=== PATIENT | male | born 1950 | race Caucasian/White ===

== ENCOUNTER → 2016-07-31 | Outpatient (CLI) | payer MEDICARE ==
[~2016-07-31] VITALS: Ht 175.3 cm; Wt 80.3 kg
[~2016-07-31] MED LIST: AMLO2.5T PO; ASPI1TAB PO; ATEN100T PO; ATOR1TAB19 PO; CHLO125TA PO; CLOP75TA2 PO; COLA100C PO; FERR325T PO; FERR325T3 PO; FISH1000 PO; LIDOCAINE 2% INJ 100 MG/5 ML SDV (FOR ANES.) As Ordered ONE; LOSA100T36 PO; METF-415 PO; NS 1,000 ML IV SCH; PANT40TA2 PO; POTA10CA PO; PRIL40CA PO; PROPOFOL 200 MG/20 ML VIAL As Ordered ONE; SUCR1TA PO; VITMTA PO; ePHEDrine SULFATE 25 MG/5 ML(5MG/ML) SYRINGE As Ordered ONE; fentaNYL 100 MCG/2 ML INJECTION (J3010) As Ordered ONE
--- NOTE | 2016-07-31 10:24 | ROOR ---
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 Procedure: Pre-Anesthesia Assessment: - The heart rate, respiratory rate, oxygen saturations, blood pressure, adequacy of pulmonary ventilation, and response to care were monitored throughout the procedure. The Endoscope was introduced through the mouth, and advanced to the second part of duodenum. The upper GI endoscopy was accomplished without difficulty. The patient tolerated the procedure well. Findings: Three large pedunculated and sessile polyps with stigmata of recent bleeding were found at the pylorus. An endoloop was maneuvered over the polyp stalk and closed at the mucosal attachment prior to removal in order to prevent bleeding. Polyp resection was incomplete, and the resected tissue was partially retrieved. The exam was otherwise without abnormality. 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 The polypoid lesions "ballvalve" through the pylorus making access difficult. Endoloops were placed before piecemeal polypectomy was done with hot snare. The polyp resection was incomplete, and the resected tissue was partially retrieved. - The examination was otherwise normal. Recommendation: - Repeat the upper endoscopy in 1 month for retreatment. - Continue present medications. - My office will call you to reschedule the procedure. Carmelo Eng MD Carmelo ENG MD 07/31/2016 10:23:43 AM This report has been signed electronically. Number of Addenda: 0 Note Initiated On: 07/31/2016 9:24 AM Estimated Blood Loss: Estimated blood loss: none.
[2016-07-31 10:33] VITALS: BP 129/76
== END | disposition home or self-care (01) ==
LOC: M OPP 08:19
PROVIDERS: ATTEND Internal Medicine Gastroenterology
DX: K31.7 Polyp of stomach and duodenum (principal); D62 Acute posthemorrhagic anemia; I10 Essential (primary) hypertension; E78.5 Hyperlipidemia, unspecified; E11.9 Type 2 diabetes mellitus without complications; R60.9 Edema, unspecified; R12 Heartburn; R06.83 Snoring; Z79.84 Long term (current) use of oral hypoglycemic drugs; Z87.19 Personal history of other diseases of the digestive system; Z80.0 Family history of malignant neoplasm of digestive organs; Z87.891 Personal history of nicotine dependence; Z79.899 Other long term (current) drug therapy
CPT/HCPCS: 43251; 88305; J3010

== ENCOUNTER → 2016-09-03 | Outpatient (CLI) | payer MEDICARE ==
[~2016-09-03] MED LIST changes: +AMLO-59 PO; -LIDOCAINE 2% INJ 100 MG/5 ML SDV (FOR ANES.) As Ordered ONE; +LOSA100T37 PO; -NS 1,000 ML IV SCH; -PROPOFOL 200 MG/20 ML VIAL As Ordered ONE; +SENN8.6T8 PO; -ePHEDrine SULFATE 25 MG/5 ML(5MG/ML) SYRINGE As Ordered ONE; -fentaNYL 100 MCG/2 ML INJECTION (J3010) As Ordered ONE
[2016-09-03 13:53] LABS: MEAN CORPUSCULAR HEMOGLOBIN 30.9 pg (27.0-33.0); MEAN CORPUSCULAR HGB CONC 34.4 g/dl (32.0-36.5); MEAN CORPUSCULAR VOLUME 89.8 fl (80.0-96.0); RED CELL DISTRIBUTION WIDTH 17.9 % (11.5-14.5); WHITE BLOOD COUNT 6.8 K/mm3 (4.0-10.0)
== END ==
LOC: M LAB 12:49
PROVIDERS: ATTEND Family Medicine
DX: D64.9 Anemia, unspecified (principal); D69.6 Thrombocytopenia, unspecified

== ENCOUNTER → 2016-09-07 | Outpatient (CLI) | payer MEDICARE ==
[~2016-09-07] VITALS: Ht 175.3 cm; Wt 77.1 kg
[~2016-09-07] MED LIST changes: +LIDOCAINE 2% INJ 100 MG/5 ML SDV (FOR ANES.) As Ordered ONE; +NS 1,000 ML IV SCH; +PROPOFOL 200 MG/20 ML VIAL As Ordered ONE; +fentaNYL 100 MCG/2 ML INJECTION (J3010) As Ordered ONE
--- NOTE | 2016-09-07 09:22 | ROOR ---
Patient Name: Kg Lawrence Procedure Date: 09/07/2016 8:43 AM Date of : 1950 Age: 66 Room: [facility] Gender: Male Note Status: Finalized Procedure: Upper GI endoscopy Indications: Therapeutic procedure, Iron deficiency anemia, Heme positive stool, large benign antral gastric polypoid lesions. follow up partial resection 1 month ago Providers: Carmelo ENG MD Referring MD: Huma Matthews MD Requesting Provider: Medicines: Monitored Anesthesia Care Complications: No immediate complications. Procedure: Pre-Anesthesia Assessment: - The heart rate, respiratory rate, oxygen saturations, blood pressure, adequacy of pulmonary ventilation, and response to care were monitored throughout the procedure. The Endoscope was introduced through the mouth, and advanced to the second part of duodenum. The upper GI endoscopy was accomplished without difficulty. The patient tolerated the procedure well. Findings: A medium-sized, polypoid, partially circumferential (involving one-half of the lumen circumference) mass with no bleeding and no stigmata of recent bleeding was found in the prepyloric region of the stomach and at the pylorus. Biopsies were taken with a cold forceps for histology. Coagulation for tissue destruction using argon beam at 0.8 liters/minute and 35 perez was unsuccessful. The exam was otherwise without abnormality. 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 (there is significant residual polypoid tissue that is not safely removable endoscopically). Biopsied and treated with argon beam coagulation. Treatment not successful as I am not able to access this mass safely across pyloric channel. - The examination was otherwise normal. Recommendation: - Observe patient's clinical course. - Refer to a surgeon at appointment to be scheduled. Carmelo Eng MD Carmelo ENG MD 09/07/2016 9:21:23 AM This report has been signed electronically. Number of Addenda: 0 Note Initiated On: 09/07/2016 8:43 AM Estimated Blood Loss: Estimated blood loss: none.
[2016-09-07 09:35] VITALS: BP 139/79
== END | disposition home or self-care (01) ==
LOC: M OPP 07:21
PROVIDERS: ATTEND Internal Medicine Gastroenterology
DX: D50.9 Iron deficiency anemia, unspecified (principal); D13.1 Benign neoplasm of stomach; R19.5 Other fecal abnormalities; I10 Essential (primary) hypertension; E78.00 Pure hypercholesterolemia, unspecified; D69.6 Thrombocytopenia, unspecified; Z79.899 Other long term (current) drug therapy; Z87.891 Personal history of nicotine dependence
CPT/HCPCS: 43239; 43270; 88305; 99156; 99157; J3010

== ENCOUNTER → 2016-09-14 | Outpatient (CLI) | payer MEDICARE ==
[~2016-09-14] MED LIST changes: -LIDOCAINE 2% INJ 100 MG/5 ML SDV (FOR ANES.) As Ordered ONE; -NS 1,000 ML IV SCH; -PROPOFOL 200 MG/20 ML VIAL As Ordered ONE; -fentaNYL 100 MCG/2 ML INJECTION (J3010) As Ordered ONE
[2016-09-14 09:20] LABS: BASO % 0.6 % (0.0-1.0); EOS # 0.1 K/mm3 (0.0-0.50); LYMPH % 17.6 % (24.0-44.0); MEAN CORPUSCULAR HEMOGLOBIN 31.1 pg (27.0-33.0); MEAN CORPUSCULAR HGB CONC 33.9 g/dl (32.0-36.5); MEAN CORPUSCULAR VOLUME 91.7 fl (80.0-96.0); MONO # 0.2 K/mm3 (0.0-0.8); MONO % 4.3 % (0.0-5.0); NEUTROPHILS # 4.2 K/mm3 (1.8-7.7); NEUTROPHILS % 74.7 % (36.0-66.0); RED CELL DISTRIBUTION WIDTH 16.1 % (11.5-14.5); WHITE BLOOD COUNT 5.6 K/mm3 (4.0-10.0)
[2016-09-14 09:51] LABS: ALBUMIN 3.2 GM/DL (3.2-5.2); ALBUMIN/GLOBULIN RATIO 1.33 (1.00-1.93); ALKALINE PHOSPHATASE 67 U/L (45-117); ALT/SGPT 23 U/L (12-78); ANION GAP 11 MEQ/L (8-16); AST/SGOT 17 U/L (15-37); BILIRUBIN,TOTAL 0.4 MG/DL (0.2-1.0); BLOOD UREA NITROGEN 13 MG/DL (7-18); CALCIUM LEVEL 8.4 MG/DL (8.8-10.2); CARBON DIOXIDE LEVEL 27 MEQ/L (21-32); CHLORIDE LEVEL 105 MEQ/L (98-107); CHOLESTEROL LEVEL 148 MG/DL (<200); CREATININE FOR GFR 1.23 MG/DL (0.70-1.30); GLOMERULAR FILTRATION RATE > 60.0 (>49); GLUCOSE, FASTING 177 MG/DL (80-110); POTASSIUM SERUM 3.8 MEQ/L (3.5-5.1); SODIUM LEVEL 143 MEQ/L (136-145); TOTAL PROTEIN 5.6 GM/DL (6.4-8.2); TRIGLYCERIDES LEVEL 81 MG/DL (<150)
== END ==
LOC: M LAB 08:27
PROVIDERS: ATTEND Family Medicine
DX: I10 Essential (primary) hypertension (principal); E11.42 Type 2 diabetes mellitus with diabetic polyneuropathy; E78.2 Mixed hyperlipidemia

== ENCOUNTER → 2016-12-24 | Outpatient (CLI) | payer MEDICARE ==
[~2016-12-24] MED LIST changes: -COLA100C PO; +COLA100C3 PO
[2016-12-24 09:16] LABS: MEAN CORPUSCULAR HGB CONC 35.1 g/dl (32.0-36.5); MEAN CORPUSCULAR VOLUME 93.8 fl (80.0-96.0); RED CELL DISTRIBUTION WIDTH 12.7 % (11.5-14.5); WHITE BLOOD COUNT 6.2 K/mm3 (4.0-10.0)
[2016-12-24 09:40] LABS: PERCENT SATURATION 28.8 % (19.7-37.4)
== END ==
LOC: M LAB 08:41
PROVIDERS: ATTEND Physician Assistant Medical
DX: D64.9 Anemia, unspecified (principal)

== ENCOUNTER → 2017-02-18 | Outpatient (CLI) | payer MEDICARE ==
[~2017-02-18] MED LIST changes: +AMLO-140 PO; -AMLO-59 PO; -COLA100C3 PO; +COLA100C5 PO; +FERR1TAB8 PO; -FERR325T PO; -LOSA100T37 PO; +LOSA100T5 PO
[2017-02-18 10:18] LABS: BASO % 0.2 % (0.0-1.0); EOS % 0.4 % (0.0-3.0); LYMPH # 0.6 K/mm3 (1.5-4.5); LYMPH % 8.1 % (24.0-44.0); MEAN CORPUSCULAR HEMOGLOBIN 33.2 pg (27.0-33.0); MEAN CORPUSCULAR HGB CONC 35.6 g/dl (32.0-36.5); MEAN CORPUSCULAR VOLUME 93.4 fl (80.0-96.0); MONO # 0.3 K/mm3 (0.0-0.8); MONO % 3.5 % (0.0-5.0); NEUTROPHILS # 6.9 K/mm3 (1.8-7.7); NEUTROPHILS % 86.9 % (36.0-66.0); RED CELL DISTRIBUTION WIDTH 13.2 % (11.5-14.5); WHITE BLOOD COUNT 7.9 K/mm3 (4.0-10.0)
[2017-02-18 10:27] LABS: ALBUMIN 3.4 GM/DL (3.2-5.2); ALBUMIN/GLOBULIN RATIO 1.31 (1.00-1.93); ALKALINE PHOSPHATASE 50 U/L (45-117); ALT/SGPT 26 U/L (12-78); ANION GAP 10 MEQ/L (8-16); AST/SGOT 13 U/L (15-37); BILIRUBIN,TOTAL 0.7 MG/DL (0.2-1.0); BLOOD UREA NITROGEN 30 MG/DL (7-18); CALCIUM LEVEL 8.7 MG/DL (8.8-10.2); CARBON DIOXIDE LEVEL 25 MEQ/L (21-32); CHLORIDE LEVEL 103 MEQ/L (98-107); CHOLESTEROL LEVEL 151 MG/DL (<200); CREATININE FOR GFR 1.25 MG/DL (0.70-1.30); GLOMERULAR FILTRATION RATE > 60.0 (>49); GLUCOSE, FASTING 173 MG/DL (80-110); POTASSIUM SERUM 4.7 MEQ/L (3.5-5.1); SODIUM LEVEL 138 MEQ/L (136-145); TRIGLYCERIDES LEVEL 65 MG/DL (<150)
== END ==
LOC: M LAB 08:47
PROVIDERS: ATTEND Family Medicine
DX: E78.2 Mixed hyperlipidemia (principal); I10 Essential (primary) hypertension; E11.42 Type 2 diabetes mellitus with diabetic polyneuropathy; D50.0 Iron deficiency anemia secondary to blood loss (chronic)

== ENCOUNTER 2018-10-09 | Emergency (ER) | payer MEDICARE ==
[~2018-10-09] VITALS: Ht 177.8 cm; Wt 72.7 kg
[~2018-10-09] MED LIST changes: -AMLO2.5T PO; +AMLO2.5T3 PO; -ASPI1TAB PO; +ASPI81TA26 PO; +KLOR10TA76 PO; -LOSA100T36 PO; +LOSA100T50 PO; -PANT40TA2 PO; +PANT40TA3 PO; -POTA10CA PO; +SENN1TAB36 PO; -SENN8.6T8 PO
[2018-10-09 01:02] LABS: HEMATOCRIT 38.6 % (42.0-52.0); HEMOGLOBIN 13.3 g/dl (13.5-17.5); MEAN CORPUSCULAR HEMOGLOBIN 32.7 pg (27.0-33.0); MEAN CORPUSCULAR HGB CONC 34.5 g/dl (32.0-36.5); MEAN CORPUSCULAR VOLUME 94.8 fl (80.0-96.0); RED BLOOD COUNT 4.07 10^6/uL (4.30-6.10); WHITE BLOOD COUNT 6.7 10^3/uL (4.0-10.0)
--- NOTE | 2018-10-09 01:15 | REPVR ---
EXAM: CT Cervical Spine Without Contrast EXAM DATE/TIME: 10/09/2018 12:30 AM CLINICAL HISTORY: 68 years old, male; Injury or trauma; Fall; Initial encounter; Blunt trauma TECHNIQUE: Imaging protocol: Axial computed tomography images of the cervical spine without intravenous contrast. Coronal and sagittal reformatted images were created and reviewed. Radiation optimization: All CT scans at this facility use at least one of these dose optimization techniques: automated exposure control; mA and/or kV adjustment per patient size (includes targeted exams where dose is matched to clinical indication); or iterative reconstruction. COMPARISON: No relevant prior studies available. FINDINGS: Vertebrae: Osteopenia. Straightening of the normal cervical lordosis. Mild levoscoliosis. Minimal retrolisthesis of C3 on C4 and anterolisthesis of C7 on T1. Alignment otherwise anatomic. No CT evidence of acute fracture, dislocation or subluxation. Vertebral body heights maintained. Discs/Spinal canal/Neural foramina: Mild multilevel degenerative changes, characterized by disc space narrowing, osteophytosis and uncovertebral and facet joint hypertrophy. Mild multilevel spinal canal and neural foraminal narrowing. Soft tissues: Grossly unremarkable. Lungs: Grossly unremarkable. IMPRESSION: 1. No CT evidence of acute cervical spine traumatic injury. 2. Additional findings, as above. Electronically signed by: Anil Fritz On 10/09/2018 01:15:02 AM
--- NOTE | 2018-10-09 01:19 | REPVR ---
EXAM: CT Head Without Contrast EXAM DATE/TIME: 10/09/2018 12:30 AM CLINICAL HISTORY: 68 years old, male; Injury or trauma; Fall; Initial encounter; Blunt trauma (contusions or hematomas); Consciousness not specified TECHNIQUE: Imaging protocol: Axial computed tomography images of the head/brain without contrast. Radiation optimization: All CT scans at this facility use at least one of these dose optimization techniques: automated exposure control; mA and/or kV adjustment per patient size (includes targeted exams where dose is matched to clinical indication); or iterative reconstruction. COMPARISON: No relevant prior studies available. FINDINGS: Brain: Patchy areas of hypoattenuation in the periventricular and subcortical white matter, consistent with chronic small vessel ischemic disease. No CT evidence of acute intracranial hemorrhage or acute territorial infarction. No significant mass effect or midline shift. Basal cisterns patent. Ventricles: Prominence of the cortical sulci, cisterns and ventricular system, consistent with cerebral and cerebellar volume loss. Bones/joints: No acute osseous abnormality. Sinuses: Partial opacification of the left greater than right ethmoid air cells and left inferior frontal sinus. Mild left maxillary sinus mucosal thickening. Mastoid air cells: Grossly unremarkable. Soft tissues: Grossly unremarkable. Vasculature: Mild calcific atherosclerotic disease in the cavernous internal carotid arteries. IMPRESSION: 1. No CT evidence of acute intracranial pathology. 2. Additional findings, as above. Electronically signed by: Anil Fritz On 10/09/2018 01:19:16 AM
--- NOTE | 2018-10-09 01:21 | REPVR ---
EXAM: CT Maxillofacial Without Contrast EXAM DATE/TIME: 10/09/2018 12:30 AM CLINICAL HISTORY: 68 years old, male; Injury or trauma; Fall; Initial encounter; Blunt trauma (contusions or hematomas); Forehead TECHNIQUE: Imaging protocol: Axial computed tomography images of the face without intravenous contrast. Coronal and sagittal reformatted images were created and reviewed. Radiation optimization: All CT scans at this facility use at least one of these dose optimization techniques: automated exposure control; mA and/or kV adjustment per patient size (includes targeted exams where dose is matched to clinical indication); or iterative reconstruction. COMPARISON: No relevant prior studies available. FINDINGS: Orbits: No acute intraorbital abnormality. Globes intact. Sinuses: Partial opacification of the left greater than right ethmoid air cells and left inferior frontal sinus. Mild polyploid left greater than right maxillary sinus mucosal thickening. Minimal left sphenoid sinus mucosal thickening. Bones/joints: No acute fracture. Soft tissues: No significant facial soft tissue swelling. IMPRESSION: 1. No acute facial bone fracture. 2. Additional findings, as above. Electronically signed by: Anil Fritz On 10/09/2018 01:21:17 AM
[2018-10-09 01:22] LABS: BLOOD UREA NITROGEN 18 MG/DL (7-18); CALCIUM LEVEL 8.8 MG/DL (8.8-10.2); CARBON DIOXIDE LEVEL 23 MEQ/L (21-32); CHLORIDE LEVEL 108 MEQ/L (98-107); CREATININE FOR GFR 1.08 MG/DL (0.70-1.30); GLOMERULAR FILTRATION RATE > 60.0 (>42); GLUCOSE, FASTING 164 MG/DL (70-100); POTASSIUM SERUM 4.2 MEQ/L (3.5-5.1); SODIUM LEVEL 141 MEQ/L (136-145)
[2018-10-09 01:26] LABS: PLATELET COUNT, AUTOMATED 82 10^3/uL (150-450)
[2018-10-09] MEDS ORDERED: NORCO, ANEXSIA 5/325MG TABLET (HYDROcodone/ACETAMINOPHEN) PO ONE (02:00)
[2018-10-09 04:30] VITALS: BP 143/76
[2018-10-09] MEDS ORDERED: HYDR-3715 PO (04:36)
[2018-10-09] MEDS ORDERED: NORCO 5/325MG TABLET (BULK FOR ED) PO ONE (04:45)
--- NOTE | 2018-10-09 09:16 | REP ---
Clinical: Trauma. Technique: AP view of the chest and four views of the left hemithorax. Findings: Posterolateral left ninth rib fracture is appreciated. No obvious associated consolidation/contusion, effusion, or pneumothorax. Remainder examination appears normal. Impression: Posterolateral left ninth rib fracture. Electronically Signed by Gibran Duque MD 10/09/2018 09:08 A
--- NOTE | 2018-10-09 11:16 | ECGEPIP ---
Stationary ECG Study [facility] - ED Test Date: 2018-10-09 Pat Name: MERY GIPSON Department: Room: - Gender: M Polysomnographic Tech: niya : 1950 Requested By: David Grey Order Number: [id number] Reading MD: Agnes Anne Measurements Intervals Bates Rate: 75 P: -16 TX: 159 QRS: 17 QRSD: 96 T: 42 QT: 373 QTc: 417 Interpretive Statements SINUS RHYTHM POSSIBLE RIGHT VENTRICULAR CONDUCTION DELAY NONSPECIFIC ST T WAVE CHANGES CW 06/14/[address] T WAVE CHANGES Electronically Signed On 10-09-2018 11:16:25 EDT by Agnes Anne
== END 2018-10-09 04:52 | disposition home or self-care (01) ==
LOC: M ED
DX: S22.32XA Fracture of one rib, left side, initial encounter for closed fracture (principal); W10.9XXA Fall (on) (from) unspecified stairs and steps, initial encounter; Y92.009 Unspecified place in unspecified non-institutional (private) residence as the place of occurrence of the external cause; R94.31 Abnormal electrocardiogram [ECG] [EKG]; F10.129 Alcohol abuse with intoxication, unspecified; I25.10 Atherosclerotic heart disease of native coronary artery without angina pectoris; I10 Essential (primary) hypertension; E78.00 Pure hypercholesterolemia, unspecified; Z87.891 Personal history of nicotine dependence; Z79.899 Other long term (current) drug therapy
CPT/HCPCS: 36415; 70450; 70486; 71101; 72125; 80048; 85027; 85049; 85055; 93005; 94010; 99285; G0480

== ENCOUNTER → 2019-05-23 | Outpatient (CLI) | payer MEDICARE ==
[~2019-05-23] MED LIST changes: +HYDR-3715 PO
--- NOTE | 2019-05-23 10:22 | REP ---
Urinary tract sonography with renal artery Doppler flow assessment: History: Essential hypertension. Morphologic findings: Scanning at the level of the urinary bladder confirms the presence of emptying ureteral jets into the bladder lumen bilaterally on color Doppler interrogation. Bladder geronimo are smooth as visualized. Renal cortical echogenicity pattern is normal and renal contours are smooth. Right kidney measures 11.6 x 4.8 x 5.2 cm. Left renal dimensions are 11.2 x 4.6 x 5.4 cm. At mid position of the left kidney there is a 2.1 cm soft tissue fullness in the cortex question dromedary hump versus small mass. This was not apparent previously on prior study from June 14, 2016. There is no evidence of hydronephrosis on either side. No other mass lesion is seen. Impression: Possible 2.1 cm new mass lateral cortex left mid kidney. Recommend CT scanning without and with IV contrast versus MRI. RENAL ARTERY DOPPLER FLOW ASSESSMENT: Peak systolic flow velocity in the abdominal aorta is normal at 145 cm/sec. Peak systolic flow velocity in the right main renal artery is recorded 84 cm/sec and that in the left main renal artery is recorded at 169.7 cm/sec. These values are normal. Renal to aortic flow velocity ratios are normal at 0.5 on the right and 1.1 on the left. Resistive indices and acceleration times are measured in the intralobar arteries of the upper, mid, and lower pole of each kidney and these values are normal bilaterally. Impression: No evidence to suggest renal artery stenosis. Possible 2.1 cm new mass left kidney. Electronically Signed by Akira Lindsay MD 05/23/2019 12:42 P
== END ==
LOC: M RAD 07:18
PROVIDERS: ATTEND Physician Assistant
DX: I10 Essential (primary) hypertension (principal)

== ENCOUNTER → 2019-07-11 | Outpatient (REF) | payer MEDICARE ==
[2019-07-11 18:05] LABS: FOLATE 12.1 NG/ML
== END ==
LOC: M LAB REF 16:34
PROVIDERS: ATTEND Internal Medicine Nephrology
DX: D64.9 Anemia, unspecified (principal)

== ENCOUNTER 2021-01-04 20:45 | Emergency (ER) | payer MEDICARE ==
[~2021-01-04] VITALS: Ht 175.3 cm; Wt 84.7 kg
[~2021-01-04 20:45] MED LIST changes: +PANT40TA29 PO; -PANT40TA3 PO
[2021-01-04] MEDS ORDERED: ISOS1TAB36 PO (20:57)
[2021-01-04] MEDS ORDERED: CETI-24 PO (20:57)
[2021-01-04] MEDS ORDERED: AMLO1TAB25 PO (20:57)
[2021-01-04] MEDS ORDERED: MAGN400T2 PO (20:57)
[2021-01-04] MEDS ORDERED: ECOT81TA5 PO (20:57)
[2021-01-04] MEDS ORDERED: ATOR40TA75 PO (20:57)
[2021-01-04] MEDS ORDERED: HYDR10TAB PO (20:57)
[2021-01-04] MEDS ORDERED: VALS1TAB68 PO (20:57)
[2021-01-05] MEDS ORDERED: BOOSTRIX/ADACEL VACCINE (DIPHTH/PERTUSS/ACELL/TETANUS) 0.5ML SYR IM ONE (00:50)
[2021-01-05] MEDS ORDERED: NEOSPORIN OINT 0.9 GM PKT TOP ONE (00:50)
[2021-01-05] MEDS ORDERED: LIDOCAINE 1% MDV 20ML VIAL SC ONE (00:50)
[2021-01-05 01:44] VITALS: BP 169/81
== END 2021-01-05 01:46 | disposition home or self-care (01) ==
LOC: M ED 20:45
DX: S61.012A Laceration without foreign body of left thumb without damage to nail, initial encounter (principal); W27.4XXA Contact with kitchen utensil, initial encounter; Y92.009 Unspecified place in unspecified non-institutional (private) residence as the place of occurrence of the external cause; Y93.9 Activity, unspecified; Y99.9 Unspecified external cause status; F17.200 Nicotine dependence, unspecified, uncomplicated; Z79.84 Long term (current) use of oral hypoglycemic drugs; Z79.899 Other long term (current) drug therapy

== ENCOUNTER → 2021-04-08 | Outpatient (REF) | payer MEDICARE ==
[~2021-04-08] MED LIST changes: +AMLO1TAB25 PO; +ATOR40TA75 PO; +CETI-24 PO; +ECOT81TA5 PO; +HYDR10TAB PO; +ISOS1TAB36 PO; -KLOR10TA76 PO; +MAGN400T2 PO; +POTA-136 PO; +VALS1TAB68 PO
== END ==
LOC: M LAB REF 17:52
PROVIDERS: ATTEND Internal Medicine Nephrology
DX: E83.42 Hypomagnesemia (principal)

== ENCOUNTER 2023-02-08 11:11 | Observation (INO) | payer MEDICARE ==
[~2023-02-08] VITALS: Ht 175.3 cm; Wt 75.2 kg
[~2023-02-08 11:11] MED LIST changes: +LOSA100T46 PO; -LOSA100T50 PO
[2023-02-08] MEDS ORDERED: NS 500 ML IV ONE (14:00)
[2023-02-08] MEDS ORDERED: NS 1,000 ML IV SCH (14:00)
[2023-02-08 14:07] LABS: BASO % 0.5 % (0.0-1.0); EOS % 0.5 % (0.0-3.0); HEMATOCRIT 33.9 % (42.0-52.0); HEMOGLOBIN 11.2 g/dl (13.5-17.5); LYMPH % 12.6 % (24.0-44.0); MEAN CORPUSCULAR HEMOGLOBIN 31.3 pg (27.0-33.0); MEAN CORPUSCULAR VOLUME 94.7 fl (80.0-96.0); MONO # 0.5 10^3/uL (0.0-0.8); MONO % 6.1 % (2.0-8.0); NEUTROPHILS # 6.5 10^3/uL (1.5-8.5); NEUTROPHILS % 79.8 % (36.0-66.0); RED BLOOD COUNT 3.58 10^6/uL (4.30-6.10); WHITE BLOOD COUNT 8.2 10^3/uL (4.0-10.0)
[2023-02-08 14:12] LABS: ETHYL ALCOHOL (ETHANOL) 0.058 % (0.000-0.010)
[2023-02-08 14:15] LABS: CREATININE FOR GFR 1.35 MG/DL (0.70-1.30); MAGNESIUM LEVEL 1.7 MG/DL (1.8-2.4); POTASSIUM SERUM 5.1 MMOL/L (3.5-5.1)
[2023-02-08 14:16] LABS: FREE T4 0.93 NG/DL (0.89-1.76); THYROID STIMULATING HORMONE 1.109 uIU/ML (0.55-4.78)
[2023-02-08 14:19] LABS: PLATELET COUNT, AUTOMATED 95 10^3/uL (150-450)
[2023-02-08 14:29] LABS: RSV AMPLIFICATION NEGATIVE (NEGATIVE)
[2023-02-08] MEDS ORDERED: ACETAMINOPHEN TAB 650MG DOSE (2X325MG) PO PRN (16:15)
[2023-02-08] MEDS ORDERED: LORazepam 2 MG TAB PO PRN (16:20)
[2023-02-08] MEDS: NS 1,000 ML IV SCH (16:30)
[2023-02-08] MEDS ORDERED: GLUCAGON INJ 1MG VIAL SC PRN (16:45)
[2023-02-08] MEDS ORDERED: GLUCOSE 4GM CHEW TABLET PO PRN (16:45)
[2023-02-08] MEDS ORDERED: DEXTROSE 50% 50ML SYRINGE IV PRN (16:45)
[2023-02-08] MEDS ORDERED: MAG SULF 1GM/100ML (MAG RUN) 1 GM in IV 1 EA IV ONE (16:45)
[2023-02-08] MEDS ORDERED: MED REC IN PROGRESS XX SCH (17:00)
[2023-02-08 17:13] LABS: HEMATOCRIT 33.1 % (42.0-52.0); HEMOGLOBIN 11.1 g/dl (13.5-17.5); MEAN CORPUSCULAR HEMOGLOBIN 31.4 pg (27.0-33.0); MEAN CORPUSCULAR HGB CONC 33.5 g/dl (32.0-36.5); MEAN CORPUSCULAR VOLUME 93.5 fl (80.0-96.0); RED BLOOD COUNT 3.54 10^6/uL (4.30-6.10); WHITE BLOOD COUNT 7.9 10^3/uL (4.0-10.0)
[2023-02-08 17:15] LABS: PLATELET COUNT, AUTOMATED 93 10^3/uL (150-450)
[2023-02-08] MEDS ORDERED: PANT-23 PO (17:15)
[2023-02-08] MEDS ORDERED: METF500T13 PO (17:15)
[2023-02-08] MEDS ORDERED: HYDR-3910 PO (17:15)
[2023-02-08] MEDS ORDERED: TAMS1CAP17 PO (17:18)
[2023-02-08] MEDS ORDERED: NORT25CA2 PO (17:18)
[2023-02-08] MEDS ORDERED: XIID5DRO OU (17:18)
[2023-02-08 17:25] LABS: INR 0.99; PROTHROMBIN TIME 13.3 SECONDS (12.5-14.5)
[2023-02-08] MEDS ORDERED: HOME MED LIST COMPLETE! XX SCH (17:25)
[2023-02-08 17:26] LABS: PARTIAL THROMBOPLASTIN TIME 25.2 SECONDS (24.8-34.2)
[2023-02-08] MEDS: INSULIN LISPRO (NovoLOG) PER UNIT SC SCH (17:30)
[2023-02-08 17:40] LABS: ALBUMIN 3.5 G/DL (3.2-5.2); BILIRUBIN,TOTAL 0.7 MG/DL (0.3-1.2); CALCIUM LEVEL 8.6 MG/DL (8.3-10.6); CK-MB VALUE MASS 2.8 NG/ML (<3.6); CREATININE FOR GFR 1.27 MG/DL (0.70-1.30); MB/CK RELATIVE INDEX 2.43 (< OR =4); POTASSIUM SERUM 4.3 MMOL/L (3.5-5.1)
[2023-02-08 18:35] VITALS: BP 179/78; TEMP 99.1; O2SAT 98
[2023-02-08 18:57] VITALS: BP 179/81
[2023-02-08 20:20] VITALS: BP 171/78; TEMP 99.3; O2SAT 94
[2023-02-08] MEDS: THIAMINE 100 MG TAB PO SCH (20:27)
[2023-02-08] MEDS: SENOKOT S TAB PO SCH (20:27)
[2023-02-08] MEDS ORDERED: HEPARIN SOD (PORCINE) 5000UNITS/ML 1ML VIAL/SYRINGE SQ SCH (21:00)
[2023-02-08] MEDS ORDERED: MAGNESIUM OXIDE 400MG TAB (MAG-OX) PO SCH (21:00)
[2023-02-08] MEDS ORDERED: NORTRIPTYLINE 25 MG CAP PO SCH (21:00)
[2023-02-08] MEDS ORDERED: INSULIN LISPRO (NovoLOG) PER UNIT SC SCH (21:00)
[2023-02-08] MEDS ORDERED: ATORVASTATIN 20 MG TAB PO SCH (21:00)
[2023-02-08 22:00] VITALS: BP 154/88
[2023-02-09] MEDS: NS 1,000 ML IV SCH ×2 (02:15→12:15)
[2023-02-09 06:00] VITALS: BP_SYST 147; BP_SYST 150; BP_DIAS 75; BP_DIAS 76; TEMP 98.4; O2SAT 96
[2023-02-09 06:03] VITALS: BP_SYST 147; BP_SYST 150; BP_SYST 158; BP_DIAS 75; BP_DIAS 76; BP_DIAS 88
[2023-02-09 06:09] LABS: HEMATOCRIT 33.2 % (42.0-52.0); HEMOGLOBIN 10.9 g/dl (13.5-17.5); MEAN CORPUSCULAR HEMOGLOBIN 31.1 pg (27.0-33.0); MEAN CORPUSCULAR HGB CONC 32.8 g/dl (32.0-36.5); MEAN CORPUSCULAR VOLUME 94.9 fl (80.0-96.0); WHITE BLOOD COUNT 5.9 10^3/uL (4.0-10.0)
[2023-02-09 06:11] LABS: PLATELET COUNT, AUTOMATED 84 10^3/uL (150-450)
[2023-02-09 06:30] LABS: IRON (FE) 132 UG/DL (65-175)
[2023-02-09 06:31] LABS: PERCENT SATURATION 46.5 % (19.7-50.0); TOTAL IRON BINDING CAPACITY 284 UG/DL (250-425)
[2023-02-09 06:34] LABS: ALBUMIN 3.3 G/DL (3.2-5.2); ALKALINE PHOSPHATASE 61 U/L (46-116); ALT/SGPT 17 U/L (7.0-40); AST/SGOT 19 U/L (<34); BILIRUBIN,TOTAL 1.1 MG/DL (0.3-1.2); BLOOD UREA NITROGEN 15 MG/DL (9-23); CALCIUM LEVEL 8.7 MG/DL (8.3-10.6); CARBON DIOXIDE LEVEL 21 MMOL/L (20-31); CHLORIDE LEVEL 105 MMOL/L (98-107); CREATININE FOR GFR 1.05 MG/DL (0.70-1.30); FERRITIN 20.1 NG/ML (10.5-307.3); GLOMERULAR FILTRATION RATE > 60.0 (>42); GLUCOSE, FASTING 80 MG/DL (74-106); MAGNESIUM LEVEL 1.6 MG/DL (1.8-2.4); POTASSIUM SERUM 3.9 MMOL/L (3.5-5.1); SODIUM LEVEL 139 MMOL/L (136-145); TOTAL PROTEIN 5.6 G/DL (5.7-8.2)
[2023-02-09] MEDS: INSULIN LISPRO (NovoLOG) PER UNIT SC SCH ×2 (07:30→12:00)
[2023-02-09] MEDS: THIAMINE 100 MG TAB PO SCH (08:07)
[2023-02-09] MEDS: SENOKOT S TAB PO SCH (08:07)
[2023-02-09] MEDS ORDERED: FOLIC ACID 1MG TAB PO SCH (09:00)
[2023-02-09] MEDS ORDERED: MULTIVITAMINS/MINERALS THERAP 1 TAB PO SCH (09:00)
[2023-02-09] MEDS ORDERED: PANTOPRAZOLE 40MG TAB (PROTONIX) PO SCH (09:00)
[2023-02-09] MEDS ORDERED: ASPIRIN 81MG ENTERIC TABLET PO SCH (09:00)
== END 2023-02-09 13:21 | disposition home or self-care (01) ==
LOC: M ED 11:11 → M ED INP 11:12 → ENRESERV 16:54 → M MS4PR 18:35
PROVIDERS: ADMIT Internal Medicine; ATTEND Internal Medicine
DX: I95.1 Orthostatic hypotension (principal); R42 Dizziness and giddiness; F10.10 Alcohol abuse, uncomplicated; E78.5 Hyperlipidemia, unspecified; I10 Essential (primary) hypertension; E11.9 Type 2 diabetes mellitus without complications; I35.9 Nonrheumatic aortic valve disorder, unspecified; D50.9 Iron deficiency anemia, unspecified; I65.29 Occlusion and stenosis of unspecified carotid artery; K21.9 Gastro-esophageal reflux disease without esophagitis; Z79.52 Long term (current) use of systemic steroids; Z79.899 Other long term (current) drug therapy
CPT/HCPCS: 36415; 70450; 71045; 80048; 80053; 81001; 82077; 82140; 82550; 82553; 82728; 83550; 83735; 84439; 84443; 84484; 85025; 85027; 85049; 85055; 85610; 85730; 86850; 86900; 86901; 87631; 93005; 93041; 94760; 96361; 96374; 97116; 97161; 97165; 97530; 99285; G0378; J3475

== ENCOUNTER → 2023-10-06 | Outpatient (REF) | payer MEDICARE ==
[~2023-10-06] MED LIST changes: +HYDR-161 PO; -HYDR10TAB PO; +HYDR25TA87 PO; +METF500T13 PO; +NORT25CA2 PO; +PANT-23 PO; +TAMS1CAP17 PO; +XIID5DRO OU
[2023-10-06 18:06] LABS: CREATININE,RANDOM URINE 152.7 MG/DL
[2023-10-06 18:42] LABS: TOTAL PROTEIN,RANDOM URINE 226.2 MG/DL (0.0-14.0)
== END ==
LOC: M LAB REF 16:45
PROVIDERS: ATTEND Internal Medicine Nephrology
DX: E11.22 Type 2 diabetes mellitus with diabetic chronic kidney disease (principal)

== ENCOUNTER → 2024-01-20 | Outpatient (REF) | payer MEDICARE ==
[2024-01-20 19:27] LABS: CREATININE,RANDOM URINE 215.2 MG/DL; TOTAL PROTEIN,RANDOM URINE 175.6 MG/DL (0.0-14.0)
== END ==
LOC: M LAB REF 17:15
PROVIDERS: ATTEND Internal Medicine Nephrology
DX: E11.22 Type 2 diabetes mellitus with diabetic chronic kidney disease (principal)

== ENCOUNTER → 2024-04-26 | Outpatient (REF) | payer MEDICARE ==
[2024-04-26 18:11] LABS: TOTAL PROTEIN,RANDOM URINE 117.8 MG/DL (0.0-14.0)
[2024-04-26 18:16] LABS: CREATININE,RANDOM URINE 164.9 MG/DL
[2024-04-26 18:18] LABS: PERCENT SATURATION 13.6 % (19.7-50.0)
[2024-04-26 18:19] LABS: FOLATE 18.8 NG/ML (>5.4)
[2024-04-26 18:20] LABS: FERRITIN 10.6 NG/ML (10.5-307.3)
== END ==
LOC: M LAB REF 17:02
PROVIDERS: ATTEND Internal Medicine Nephrology
DX: E11.22 Type 2 diabetes mellitus with diabetic chronic kidney disease (principal); D63.1 Anemia in chronic kidney disease; N18.9 Chronic kidney disease, unspecified

== ENCOUNTER → 2024-05-31 | Outpatient (CLI) | payer MEDICARE ==
[~2024-05-31] MED LIST changes: +E-Z-PAQUE 96% w/w SUSP 176GM BTL As Ordered ONE
== END ==
LOC: M RAD 07:31
PROVIDERS: ATTEND Nurse Practitioner Family
DX: K21.00 Gastro-esophageal reflux disease with esophagitis, without bleeding (principal); D50.9 Iron deficiency anemia, unspecified; Z79.82 Long term (current) use of aspirin

== ENCOUNTER 2024-06-02 11:23 | Outpatient (CLI) | payer MEDICARE ==
[~2024-06-02] VITALS: Ht 175.3 cm; Wt 81.8 kg
[~2024-06-02 11:23] MED LIST changes: +ALBUTEROL SULFATE 2.5MG/0.5ML INH NEB SOLN INH PRN; -E-Z-PAQUE 96% w/w SUSP 176GM BTL As Ordered ONE; +EPINEPHrine INJ 1 MG/ML 1ML AMP IM PRN; +diphenhydrAMINE 50MG/ML VIAL IV PRN; +methylPREDNISolone 125MG 2ML VIAL IV PRN
[2024-06-02 12:15] VITALS: BP 168/79; O2SAT 97
[2024-06-02] MEDS ORDERED: NS 1,000 ML IV SCH (12:30)
[2024-06-02] MEDS: IRON SUCROSE 300 MG in NS 250 ML OVER 90 MIN. IV ONE (13:16)
[2024-06-02 15:00] VITALS: BP 150/70; O2SAT 97
== END 2024-06-02 15:00 ==
LOC: M INFU 11:23
PROVIDERS: ATTEND Internal Medicine Nephrology
DX: E61.1 Iron deficiency (principal)
CPT/HCPCS: 96365; J1756

== ENCOUNTER 2024-06-16 12:15 | Outpatient (CLI) | payer MEDICARE ==
[~2024-06-16 12:15] MED LIST changes: +NS 1,000 ML IV SCH
[2024-06-16 12:25] VITALS: BP 165/70; O2SAT 97
[2024-06-16] MEDS: IRON SUCROSE 300 MG in NS 250 ML OVER 90 MIN. IV ONE (13:14)
[2024-06-16 14:53] VITALS: BP 172/68; O2SAT 100
== END 2024-06-16 14:00 ==
LOC: M INFU 12:15
PROVIDERS: ATTEND Internal Medicine Nephrology
DX: E61.1 Iron deficiency (principal)
CPT/HCPCS: 96365; 96366; J1756

== ENCOUNTER 2024-06-23 12:00 | Outpatient (CLI) | payer MEDICARE ==
[~2024-06-23] VITALS: Ht 175.3 cm; Wt 82.7 kg
[~2024-06-23 12:00] MED LIST changes: +NS (Normal Saline) 0.9% 1,000 ML IV SCH; -NS 1,000 ML IV SCH
[2024-06-23] MEDS: IRON SUCROSE 300 MG in NS 250 ML OVER 90 MIN. IV ONE (12:48)
[2024-06-23 14:30] VITALS: BP 176/76; O2SAT 96
== END 2024-06-23 14:30 ==
LOC: M INFU 12:00
PROVIDERS: ATTEND Internal Medicine Nephrology
DX: E61.1 Iron deficiency (principal)
CPT/HCPCS: 96365; 96366; J1756

== ENCOUNTER → 2024-08-23 | Outpatient (REF) | payer MEDICARE ==
[~2024-08-23] MED LIST changes: -ALBUTEROL SULFATE 2.5MG/0.5ML INH NEB SOLN INH PRN; -EPINEPHrine INJ 1 MG/ML 1ML AMP IM PRN; -NS (Normal Saline) 0.9% 1,000 ML IV SCH; -diphenhydrAMINE 50MG/ML VIAL IV PRN; -methylPREDNISolone 125MG 2ML VIAL IV PRN
[2024-08-23 18:21] LABS: CREATININE,RANDOM URINE 183.6 MG/DL
[2024-08-23 18:37] LABS: TOTAL PROTEIN,RANDOM URINE 236.7 MG/DL (0.0-14.0)
== END ==
LOC: M LAB REF 17:02
PROVIDERS: ATTEND Internal Medicine Nephrology
DX: E11.22 Type 2 diabetes mellitus with diabetic chronic kidney disease (principal)